=== PATIENT | female | born 1990 | race Caucasian/White ===

== ENCOUNTER 2023-09-07 16:50 | Emergency (ER) | payer SELFPAY ==
[2023-09-07 16:54] VITALS: BP 125/63; PULSE 82; RESP 18; TEMP 36.1; O2SAT 100; BMI 40.8
== END 2023-09-07 17:22 | disposition left against medical advice (07) ==
PROVIDERS: Emergency Provider Emergency Medicine
DX: R42 Dizziness and giddiness (principal)
CPT/HCPCS: 99281